=== PATIENT | female | born 1990 | race Caucasian/White ===

== ENCOUNTER 2020-07-01 13:27 | Emergency (ER) | payer OTHER ==
[~2020-07-01] VITALS: Ht 162.6 cm; Wt 113.4 kg
[2020-07-01 14:41] LABS: HEMOGLOBIN 14.2 gm/dl (12.3-15.3); RED BLOOD COUNT 4.26 M/UL (4.00-5.10); WHITE BLOOD COUNT 10.5 K/UL (4.5-11.0)
[2020-07-01] MEDS ORDERED: ZOFRAN ODT 4 MG4 MG SL (19:11)
[2020-07-01] MEDS ORDERED: OMNICEF 300 MG300 MG PO (19:11)
== END 2020-07-01 19:45 | disposition left against medical advice (07) ==
LOC: ER1 13:27
PROVIDERS: Emergency Medicine
DX: N17.9 Acute kidney failure, unspecified (principal); K21.9 Gastro-esophageal reflux disease without esophagitis; F17.200 Nicotine dependence, unspecified, uncomplicated; Z20.822 Contact with and (suspected) exposure to COVID-19
CPT/HCPCS: 80053; 80307; 81001; 82150; 83605; 83690; 83735; 84703; 85025; 85610; 85730; 93005; 96365; 96366; 96368; 96375; 99284; G0480; J0696; J2405; J3411; J3475; J7030; U0002